=== PATIENT | female | born 1960 | race Caucasian/White ===

== ENCOUNTER 2024-08-16 13:06 | Outpatient (AMB) | payer OTHER, SELFPAY ==
--- NOTE | 2024-08-16 13:12 | A.OFFVIS_ITS ---
Vital Signs 08/16/24 13:14 Height 5 ft 2.2 in Weight 167 lb 12.348 oz BMI 30.5 BP 110/72 Blood Pressure Location Lt brachial Position Sitting Pulse 60 Pulse Source Pulse Oximeter Pulse Oximetry (%) 100 Oxygen Delivery Method Room Air Intake Visit Reasons: arthritis Intake Note: Pt present today for an Arthritis follow up. Lemon Picker Required: Yes Lemon Picker Name: [email or web address] [id number] Information Interpreted: non-clinical & clinical Allergies No Known Allergies [No Known Allergies*] Allergy (Verified 08/16/24 13:20) HPI HPI arthritis: Details: Video certified court/medical interpreter used. [place]ian speaking patient. She has pain in right hand when she wakes up. She has intermittent pain in right ankle. No joint stiffness. She takes advil PRN pain. She does exercises to help control pain. Denies parenthesis. Exacerbated with holding things. Dropping things. Review of Systems Const All systems reviewed & are unremarkable except as noted in HPI and below Physical Exam Vital Signs: Last Vital Signs Pulse 60 08/16/24 13:14 BP 110/72 08/16/24 13:14 Pulse Ox 100 08/16/24 13:14 Oxygen Delivery Method Room Air 08/16/24 13:14 BMI result Body Mass Index 30.5 Const Other: General: Comfortable CVS: RRR Respiratory: clear to auscultation bilaterally. Good respiratory effort Skin: No lesions seen MSK: Tender right PIPs. Haberden's nodes present bilateral hands. Squarring of CMCs. Good chromosomal disorders counselor. Good ROM upper extremities and lower extremities. No synovitis. No MTP tenderness Assessment & Plan Assessment & Plan (1) Osteoarthritis of hands, bilateral: Comment: Clinical dx. Uncontrolled pain. Code(s): M19.041 - Primary osteoarthritis, right hand; M19.042 - Primary osteoarthritis, left hand Category: Medical Qualifiers: Osteoarthritis type: primary Qualified Code(s): M19.041 - Primary osteoarthritis, right hand; M19.042 - Primary osteoarthritis, left hand Plan: X-ray ordered Apply diclofenac gel 1% to affected area every 4-6 hours as needed Baseline labs ordered OT ordered Return to clinic in 3 months Orders: Orders Complete Blood Count Auto Diff 08/16/24 M19.041 - Primary osteoarthritis, right hand, M19.042 - Primary osteoarthritis, left hand XR hand RT min 3V 08/16/24 M19.041 - Primary osteoarthritis, right hand, M19.042 - Primary osteoarthritis, left hand XR hand LT min 3V 08/16/24 M19.041 - Primary osteoarthritis, right hand, M19.042 - Primary osteoarthritis, left hand OT Evaluation and Treatment 08/16/24 M19.041 - Primary osteoarthritis, right hand, M19.042 - Primary osteoarthritis, left hand Alanine Aminotransferase 08/16/24 M19.041 - Primary osteoarthritis, right hand, M19.042 - Primary osteoarthritis, left hand Creatinine 08/16/24 M19.041 - Primary osteoarthritis, right hand, M19.042 - Primary osteoarthritis, left hand Aspartate Amino Transferase 08/16/24 M19.041 - Primary osteoarthritis, right hand, M19.042 - Primary osteoarthritis, left hand Medications: New diclofenac sodium 1% apply to affected area every 4-6 hours. Bol[place]ian label. 2 grams topical QID 100 grams 5RF Coding Level of Care Code Est Pt Level 3 (15736) Complex EM visit Add On G2211 Diagnoses Primary osteoarthritis of both hands M19.041; M19.042 Osteoarthritis type: primary
[2024-08-16 13:14] VITALS: BP 110/72; PULSE 60; O2SAT 100; BMI 30.5
--- OUTSIDE RECORDS SUMMARY | 2024-08-16 15:37 | XMS_ITS | Encounter Summary ---
Author Organization [facility] [facility] Address [address] [place] [address] Care Team Providers Care Sole Layer Name Role Phone Unavailable Primary Care Provider Unavailabl e Encounter Details Date Type Department Care Team (Latest Contact Info) Description 04/02/2019 Abstract [facility] CONVERSIONS Dental, Provider, DDS Social History Tobacco Use Types Packs/Day Years Used Date Smoking Tobacco: Never Assessed Comments Unknown Sex and Gender Information Value Date Recorded Sex Assigned at Female 04/19/2022 10:15 AM EDT Legal Sex Female 10:15 AM EDT Gender Identity Female 04/19/2022 10:15 AM EDT Sexual Orientation Choose not to disclose 2021 10:15 AM EDT documented as of this encounter Plan of Treatment Not on file documented as of this encounter Visit Diagnoses Not on filedocumented in this encounter
--- OUTSIDE RECORDS SUMMARY | 2024-08-16 15:37 | XMS_ITS | Clinical Summary ---
Author Organization [employer] Address [address] [place] [address] Care Team Providers Care Mechanical Engineering Coop Name Role Phone Unavailable Primary Care Provider Unavailabl e Social History Tobacco Use Types Packs/Day Years Used Date Smoking Tobacco: Never Assessed Comments Unknown Sex and Gender Information Value Date Recorded Sex Assigned at Female 04/19/2022 10:15 AM EDT Legal Sex Female 10:15 AM EDT Gender Identity Female 04/19/2022 10:15 AM EDT Sexual Orientation Choose not to disclose 2021 10:15 AM EDT Plan of Treatment Health Maintenance Due Date Last Done Comments CT Colonography 1961 Colonoscopy 1961 Colorectal Cancer Screening 1961 Depression Screening 1961 FIT DNA/Cologuard 1961 FIT 1961 FOBT 1961 Sigmoidoscopy 1961 Alcohol/Substance Use Screening 1973 Tobacco Screening 1973 DTaP/Tdap/Td Vaccines (1 - Tdap) 1980 Pap Smear 1982 Cervical Cancer Screening 1991 HPV/Cotest 1991 Mammogram 2001 Pneumococcal Vaccine: 50+ Ye ars (1 of 1 - PCV) 2011 Zoster Vaccines (1 of 2) 2011 COVID-19 Vaccine ( - 2023-2 5 season) 2024 Influenza Vaccine (#1) 2024 RSV Patients and Pa tients Aged 60 years or older (1 - 1-dose 75+ series) 2036 HIB Vaccines Aged Out No longer eligi ble based on patient's age to complete this topic HPV Vaccines Aged Out No longer eligi ble based on patient's age to complete this topic Hepatitis A Vaccines Aged Out No long er eligible based on patient's age to complete this topic Hepatitis B Vaccines Aged Out No long er eligible based on patient's age to complete this topic IPV Vaccines Aged Out No longer eligi ble based on patient's age to complete this topic Meningococcal Vaccine Aged Out No lee ronit eligible based on patient's age to complete this topic Pneumococcal Vaccine: Pediat rics (0 to 5 Years) and At-Risk Patients (6 to 49) Years) Aged Out No longer eligible b ased on patient's age to complete this topic RSV under 20 months Aged Out No longe r eligible based on patient's age to complete this topic Rotavirus Vaccines Aged Out No longer eligible based on patient's age to complete this topic
--- OUTSIDE RECORDS SUMMARY | 2024-08-16 15:37 | XMS_ITS | Encounter Summary ---
Author Organization [facility] Address [address] [place] [address] Care Team Providers Care Bedspread Cutter Name Role Phone Unavailable Primary Care Provider Unavailabl e Encounter Details Date Type Department Care Team (Latest Contact Info) Description 03/04/2021 Abstract [facility] CONVERSIONS Dental, Provider, DDS Social History Tobacco [...]
== END 2024-08-16 13:50 | disposition home or self-care (01) ==
PROVIDERS: PCP Physician Assistant; Visit Provider Internal Medicine Rheumatology
DX: M19.041 Primary osteoarthritis, right hand (principal); M19.042 Primary osteoarthritis, left hand
CPT/HCPCS: 99213; G2211

== ENCOUNTER 2024-08-16 13:07 | Outpatient (REF) | payer OTHER, SELFPAY ==
[2024-08-16 18:22] LABS: MANUAL DIFF FLAG NO
[2024-08-16 18:28] LABS: Basophils Percent Auto 0.5 % (0-2); Eosinophils Absolute Auto 0.1 X10*3/uL (0.0-0.4); Eosinophils Percent Auto 2.5 % (0-4); Hematocrit 39.1 % (37.0-47.0); Hemoglobin 12.2 g/dl (12.0-16.0); Imm Gran Abs Auto 0.01 X10*3/uL (0.00-0.03); Imm Gran Pct Auto 0.2 % (0.0-0.4); Lymphocytes Absolute Auto 1.2 X10*3/uL (1.2-4.9); Lymphocytes Percent Auto 28.1 % (20-40); Mean Corpuscular HGB Conc 31.2 g/dl (31.0-35.0); Mean Corpuscular Hemoglobin 26.4 pg (27.0-33.0); Mean Corpuscular Volume 84.6 fL (80.0-98.0); Mean Platelet Volume 11.9 fL (9.4-12.3); Monocytes Absolute Auto 0.3 X10*3/uL (0.1-1.2); Monocytes Percent Auto 7.1 % (2-11); Neutrophils Absolute Auto 2.7 x10*3/uL (2.0-8.3); Neutrophils Percent Auto 61.6 % (45-73); Platelet Count 255 X10*3/uL (160-400); Red Blood Count 4.62 X10*6/uL (4.20-5.50); White Blood Count 4.4 X10*3/uL (4.8-10.8)
[2024-08-16 18:46] LABS: Alanine Aminotransferase 24 U/L (0-31); Aspartate Amino Transferase 25 U/L (5-31); Estimated Glomerular Filt Rate > 60
== END 2024-08-16 13:08 | disposition home or self-care (01) ==
LOC: HO.HKASLDS 13:07
PROVIDERS: PCP Physician Assistant; Visit Provider Internal Medicine Rheumatology
DX: M19.041 Primary osteoarthritis, right hand (principal); M19.042 Primary osteoarthritis, left hand
CPT/HCPCS: 36415; 82565; 84450; 84460; 85025; 99212

== ENCOUNTER 2024-08-23 13:17 | Outpatient (REF) | payer OTHER, SELFPAY ==
--- NOTE | ~2024-08-23 | XR_ITS ---
CLINICAL HISTORY: M19.041 - Primary osteoarthritis, right hand 3 view right hand Comparison: None Findings: No acute fracture or dislocation. Radiocarpal joint space loss with subchondral sclerosis. Additional joint space loss at the 1st carpometacarpal joint and at the metacarpophalangeal joint of the thumb. No erosions. mild distal interphalangeal joint space loss diffusely with osteophyte formation greatest at the 3rd digit. IMPRESSION: 1. Degenerative changes as described. No erosions. This document has been electronically signed by: Norma Parada MD on 08/25/2024 08:51:28
--- NOTE | ~2024-08-23 | XR_ITS ---
CLINICAL HISTORY: M19.041 - Primary osteoarthritis, right hand 3 view left hand Comparison: None Findings: No fracture or malalignment. Mild joint space loss at the base of the thumb. Mild radiocarpal joint space loss. Slight widening of the scapholunate interval measuring 3.5 mm. Distal interphalangeal joint space loss in the 2nd through 5th digits greatest at the 3rd digit. No erosions. IMPRESSION: 1. Degenerative changes as described. No erosions. This document has been electronically signed by: Norma Parada MD on 08/25/2024 08:51:54
--- OUTSIDE RECORDS SUMMARY | 2024-08-23 16:08 | XMS_ITS | Encounter Summary ---
Author Organization [facility] Address [address] [place] [address] Care Team Providers Care Science Intern Name Role Phone Unavailable Primary Care Provider Unavailabl e Encounter Details Date Type Department Care Team (Latest Contact Info) Description 03/04/2021 Abstract [facility] CONVERSIONS Dental, Provider, DDS Social History [...]
--- OUTSIDE RECORDS SUMMARY | 2024-08-23 16:08 | XMS_ITS | Encounter Summary ---
Author Organization [facility] [employer] [facility] Address [address] [place] [address] Care Team Providers Care Financial Sales Professional Name Role Phone Unavailable Primary Care Provider Unavailabl e Encounter Details Date Type Department Care Team (Latest Contact Info) Description 04/02/[address] [facility] CONVERSIONS Dental, Provider, DDS Social History [...]
--- OUTSIDE RECORDS SUMMARY | 2024-08-23 16:08 | XMS_ITS | Clinical Summary ---
Author Organization [employer] Address [address] [place] [address] Care Team Providers Care Analysis Internship Name Role Phone Unavailable Primary Care Provider [...]
== END 2024-08-23 13:18 | disposition home or self-care (01) ==
LOC: HO.HMGCX 13:17
PROVIDERS: PCP Physician Assistant; Visit Provider Internal Medicine Rheumatology
DX: M19.041 Primary osteoarthritis, right hand (principal); M19.042 Primary osteoarthritis, left hand
CPT/HCPCS: 73130

== ENCOUNTER → 2024-08-23 13:23 | Outpatient (BNV) | payer OTHER, SELFPAY | PROVIDERS: PCP Physician Assistant; Visit Provider Radiology Diagnostic Radiology | DX: M19.041 Primary osteoarthritis, right hand (principal); M19.042 Primary osteoarthritis, left hand | CPT/HCPCS: 73130 ==

== ENCOUNTER 2024-10-10 11:05 | Outpatient (RCR) | payer OTHER, SELFPAY ==
--- NOTE | 2024-09-26 12:05 | MHC.OT.EP ---
[address] [phone] Occupational Therapy Plan of Care Patient Name: Perri Burrell Date of Evaluation: 09/26/24 Diagnosis: Osteoarthritis of bilateral hands Pain Location: Right hand: 8/10 Left hand: 6/10 Pain Score: 8 Pain Scale Used: Numeric (0 - 10) Aggravating Factors: Exacerbated by holding things, opening jars Alleviating Factors: Medicated cream, Advil, rest Assessment: Patient is a 64-year-old female referred to OT for management of bilateral hand osteoarthritis. She reports a long-standing history of hand pain, stiffness, and weakness, particularly with functional tasks such as opening jars. Symptoms are more pronounced in the right hand. She currently uses Advil for pain management with partial relief. Objective testing reveals reduced bilateral breakfast hostess strength (30# B), which is below age and gender norms. Functional impact is reflected in a QuickDASH score of 34.1%, indicating moderate disability. Patient is motivated to improve hand strength and function for increased independence in daily tasks. Frequency and Duration: The patient will be seen 2x/wk for 3 weeks Short Term Goals: STG's = LTG's Custodial Goals: Educate patient in joint protection techniques and use of adaptive equipment as needed Decrease reports of pain during daily activities to <2/10 Improve bilateral breakfast hostess strength to >40# Achieve QuickDASH score =20% IND with HEP Treatment Plan: Therapeutic Exercise Therapeutic Activity Home Exercise Program Patient Education Edema Control Paraffin MHP Joint Mobilization Electronically Signed By: Aure Vivas MS OTR/L Please Sign and return to therapist. Thank you once again for your referral.
--- NOTE | 2024-12-11 08:09 | MHC.OT.DC ---
[address] [phone] F: [phone] Occupational Therapy Discharge Note Patient Name: Perri Burrell Provider: Raymundo Goel Diagnosis: Osteoarthritis of bilateral hands Date of Evaluation: 09/26/24 Date of Discharge: 12/11/24 Treatments to Date: 5 Discharge Status: Improved Function, Independent with HEP Discharge Summary: Perri demonstrates good compliance with home exercises with an overall decrease in pain. University Professor strength is 25# bilaterally. Pt did not show for last scheduled appointment, however she did progress well and was IND with home program and joint protection techniques. Pt is discharged from skilled OT therapy. Thank you for this referral. Electronically Signed By: Aure Vivas MS OTR/L Reviewed/agree with student documentation: Therapist: Please Sign and return to therapist, thank you for your referral.
== END 2024-12-11 08:10 | disposition home or self-care (01) ==
LOC: HO.OTS 11:05
PROVIDERS: PCP Physician Assistant; Visit Provider Internal Medicine Rheumatology
DX: M19.041 Primary osteoarthritis, right hand (principal); M19.042 Primary osteoarthritis, left hand
CPT/HCPCS: 97110; 97165

== ENCOUNTER 2024-11-15 10:29 | Outpatient (AMB) | payer OTHER, SELFPAY ==
[2024-11-15 10:29] VITALS: BP 130/80; PULSE 83; O2SAT 99; BMI 31.5
--- NOTE | 2024-11-15 10:29 | MHC.OFFVIS ---
Vital Signs 11/15/24 10:29 Height 5 ft 2.2 in Weight 173 lb 8.061 oz BMI 31.5 BP 130/80 Pulse 83 Pulse Source Pulse Oximeter Pulse Oximetry (%) 99 Oxygen Delivery Method Room Air Intake Visit Reasons: 3 Months Intake Note: Pt present today for an Arthritis follow up. Sponsorship Manager Name: [phone] Information Interpreted: non-clinical & clinical Accompanied by: Self / Same As Patient Allergies No Known Allergies [No Known Allergies*] Allergy (Verified 11/15/24 10:30) HPI HPI 3 Months: Details: [place]i speaking patient. Video computer systems integrator used. Intermittent bilateral cmc pain. Tolerable. Worse with activity. Uses tylenol 650mg PRN and Physical Exam Vital Signs: Last Vital Signs Pulse 83 11/15/24 10:29 BP 130/80 11/15/24 10:29 Pulse Ox 99 11/15/24 10:29 Oxygen Delivery Method Room Air 11/15/24 10:29 BMI result Body Mass Index 31.5 Const Other: General: Comfortable CVS: RRR Respiratory: clear to auscultation bilaterally. Good respiratory effort Skin: No lesions seen MSK: Haberden's nodes present bilateral hands. Squarring of CMCs without pain. Good dancing instructor. No synovitis. Weak dancing instructor Results Reviewed Results Reviewed: X-ray bilateral hand 08/25/2024 reviewed Assessment & Plan Assessment & Plan (1) Osteoarthritis of hands, bilateral: Comment: Pain is controlled with Tylenol and diclofenac gel as needed. She completed occupational therapy. She continues to have a weak dancing instructor. Answered patient's questions to his satisfaction. Code(s): M19.041 - Primary osteoarthritis, right hand; M19.042 - Primary osteoarthritis, left hand Category: Medical Qualifiers: Osteoarthritis type: primary Qualified Code(s): M19.041 - Primary osteoarthritis, right hand; M19.042 - Primary osteoarthritis, left hand Plan: Continue to apply diclofenac gel 1% to affected area every 4-6 hours as needed Continue Tylenol 650 mg prn joint pain She had benefit with using paraffin wax bath. I recommend that she ask her daughter to purchase paraffin wax bath from [employer]. Increased frequency of exercise learned from occupational therapy to daily Information on osteoarthritis printed for patient in [place] Return to clinic PRN (2) Leucopenia: Comment: 07/2024 Code(s): D72.819 - Decreased white blood cell count, unspecified Category: Medical Plan: Repeat CBC Orders: Orders Complete Blood Count Auto Diff Today D72.819 - Decreased white blood cell count, unspecified Coding Level of Care Code Est Pt Level 4 (66351) Complex EM visit Add On G2211 Diagnoses Primary osteoarthritis of both hands M19.041; M19.042 Osteoarthritis type: primary Leucopenia D72.819 Time Spent (min) 20
--- OUTSIDE RECORDS SUMMARY | 2024-11-15 10:57 | XMS_ITS | Encounter Summary ---
Author Organization [facility] Address [address] [place] [address] Care Team Providers Care Astrochemist Name Role Phone Unavailable Primary Care Provider Unavailabl e Encounter Details Date Type Department Care Team (Latest Contact Info) Description 04/02/2019 Abstract [facility] CONVERSIONS Dental, Provider, DDS Social History Tobacco [...]
== END 2024-11-15 11:03 | disposition home or self-care (01) ==
LOC: HO.RHES 10:30
PROVIDERS: PCP Physician Assistant; Visit Provider Internal Medicine Rheumatology
DX: M19.041 Primary osteoarthritis, right hand (principal); M19.042 Primary osteoarthritis, left hand; D72.819 Decreased white blood cell count, unspecified
CPT/HCPCS: 99214; G2211

== ENCOUNTER 2024-11-15 10:29 | Outpatient (REF) | payer OTHER, SELFPAY ==
[2024-11-15 11:41] LABS: MANUAL DIFF FLAG NO
[2024-11-15 12:15] LABS: Basophils Percent Auto 0.5 % (0-2); Eosinophils Absolute Auto 0.4 X10*3/uL (0.0-0.4); Eosinophils Percent Auto 6.5 % (0-4); Hematocrit 39.2 % (37.0-47.0); Hemoglobin 12.6 g/dl (12.0-16.0); Imm Gran Abs Auto 0.02 X10*3/uL (0.00-0.03); Imm Gran Pct Auto 0.3 % (0.0-0.4); Lymphocytes Absolute Auto 1.5 X10*3/uL (1.2-4.9); Lymphocytes Percent Auto 25.3 % (20-40); Mean Corpuscular HGB Conc 32.1 g/dl (31.0-35.0); Mean Corpuscular Hemoglobin 27.2 pg (27.0-33.0); Mean Corpuscular Volume 84.7 fL (80.0-98.0); Mean Platelet Volume 11.4 fL (9.4-12.3); Monocytes Absolute Auto 0.4 X10*3/uL (0.1-1.2); Monocytes Percent Auto 6.5 % (2-11); Neutrophils Absolute Auto 3.5 x10*3/uL (2.0-8.3); Neutrophils Percent Auto 60.9 % (45-73); Platelet Count 265 X10*3/uL (160-400); Red Blood Count 4.63 X10*6/uL (4.20-5.50); Red Cell Distribution Width 14.6 % (11.0-16.0); White Blood Count 5.7 X10*3/uL (4.8-10.8)
== END 2024-11-15 10:30 | disposition home or self-care (01) ==
LOC: HO.LAB 10:29
PROVIDERS: PCP Physician Assistant; Visit Provider Internal Medicine Rheumatology
DX: D72.819 Decreased white blood cell count, unspecified (principal); M19.041 Primary osteoarthritis, right hand; M19.042 Primary osteoarthritis, left hand
CPT/HCPCS: 36415; 85025; 99212